=== PATIENT | female | born 1965 | race Caucasian/White ===

== ENCOUNTER 2019-01-03 00:52 | Inpatient (IN) | payer MEDICAID ==
[~2019-01-03] VITALS: Ht 162.6 cm; Wt 68.0 kg
[~2019-01-03 00:52] MED LIST: BACO TOP; CLINDAMYCIN300 M1 PO; HIBICLENS118 ML TOP; LAC PO; LEVAQUIN500 MG PO
--- NOTE | 2019-01-03 00:58 | NUR ---
RECEIVED A 53 Y/O F FOR DOG BITE INFECTION TO THE LEG. PER PATIENT. SHE SUSTAINED THE DOG BITE 2 WEEKS AGO. PT WENT TO [facility] AND WAS GIVEN AMOXICILLIN ANTIBIOTICS. PT CALLED BECAUSE SHE WAS FEELING DIZZY AND NOTICED PUS COMING OUT OF HER WOUND. MD AT THE BEDSIDE. PT WANTS THE MD TO "SQUEEZE BLOOD OUT AND SLICE IT OPEN". THERE ARE 2 NOTED WOUNDS ON THE LEFT LEG MEASURING 1X1 CM AND 1 X 2 CM. 5 NOTED WOUNDS ON THE RIGHT LEG. THE BIGGEST WOUND MEASURES 3X5X1 CM. THE OTHER WOUNDS ARE 3X 1.2 CM AND ANOTHER ONE IS 3X2X1/2 CM. PT DENIES ANY PAIN AT THIS MOMENT AND REPORTS NUMBNESS ON THE WOUND. PT AAOX4. RESP EVEN AND UNLABORED. PT PLACED ON BP CUFF, PULSE OX. NO DISTRESS. WILL CONTINUE TO MONITOR FOR SAFETY
[2019-01-03 02:08] LABS: BASOPHIL % 0.4 % (0-2); PLATELET COUNT 280 x10^3mcL (130-400); RED CELL DISTRIBUTION WIDTH 13.8 % (11.5-14.5)
[2019-01-03 02:14] LABS: CALCIUM 8.2 mg/dL (8.5-10.1); CARBON DIOXIDE 29.8 mmol/L (21-32); CHLORIDE SERUM 103 mmol/L (98-107); CREATININE SERUM 0.8 mg/dL (0.6-1.0); GFR1 > 60 mL/min; GLUCOSE SERUM 94 mg/dL (74-106); POTASSIUM SERUM 3.5 mmol/L (3.5-5.1); SODIUM SERUM 139 mmol/L (136-145)
[2019-01-03 02:19] LABS: ALBUMIN 3.4 g/dL (3.4-5.0); ALKALINE PHOSPHATASE 78 U/L (46-116); ALT/SGPT 49 U/L (14-59); AST/SGOT 37 U/L (15-37); BILIRUBIN TOTAL 0.2 mg/dL (0.20-1.00); TOTAL PROTEIN, SERUM 7.2 g/dL (6.4-8.2)
--- NOTE | 2019-01-03 03:48 | NUR ---
PATIENT WAS SEEN BY . HAD LAB DRAWN.PATIENT WAS LOCK IN THE BATHROOM FOR A LONG TIME. HAD XRAY, HAD LAND , HAD EKG.
[2019-01-03 04:57] LABS: MAGNESIUM 2.3 mg/dL (1.8-2.4); PHOSPHOROUS 3.5 mg/dL (2.5-4.9)
[2019-01-03 05:01] LABS: CHOLESTEROL/HDL RATIO 4.5
[2019-01-03 05:07] LABS: T3 TOTAL 1.12 ng/mL
--- NOTE | 2019-01-03 05:08 | NUR ---
PATIENT WAS AWAKEN FOR TRANSFER TO [facility]. SHE AMBULATED TO THE BATHROOM, URINE SENT TO THE LAB FOR UA , CULTURE AND TOX SCREEN
[2019-01-03 05:14] LABS: FREE T4 1.2 ng/dL (0.76-1.46); FREE THYROXINE INDEX 3.5 ug/dL (1.4-4.5); T4(THYROXINE) 10.9 ug/dL (4.7-13.3)
[2019-01-03 06:18] VITALS: BP 116/64
[2019-01-03 06:18] LABS: microscopic required? NO
--- NOTE | 2019-01-03 06:46 | NUR ---
RECEIVED PT FROM ED VIA BED ACCOMPANIED BY NURSE. PT AAOX4 ABLE TO MAKE NEEDS KNOWN. ON TELE# [address] SR. DENIES CP/PRESSURE AT THIS TIME. PALPABLE PULSES TO BLE. EDEMA TO RLE NOTED. LUNG SOUNDS CTA ON RA. BREATHING EVEN AND UNLABORED. NO ACUTE DISTRESS NOTED. ABD SOFT AND NONDISTENDED. ACTIVE BOWEL SOUNDS X4 QUAD. DENIES N/V/D. VOIDS FREELY BRP. WEAKNESS TO RLE. IV TO RH RUNNING NS AT 100ML/HR. SITE FREE FROM REDNESS AND SWELLING. BED AT LOWEST SETTING. SIDE RAILS X2 UP. CALL LIGHT WITHING REACH. WILL ENDORSE CARE TO AM NURSE.
--- NOTE | 2019-01-03 07:20 | NUR ---
RECEIVED PT FROM BRANCH LIBRARY CLERK RN. Chaka/RADHA. TELE#7. DENIES CHEST PAIN/PRESSURE. RESPIRATIONS EQUAL AND UNLABORED ON RA. DENIES SOB. WOUNDS TO BLE BIOMETRICS INSTRUCTOR, ERYTHEMA NOTED TO WOUND BED. DRAINING YELLOW DISCHARGE. PT C/O PAIN TO BLE THROBBING 11/12. RELAXATION ENCOURAGED. PT STATES SHE FEELS TIRED. WILL CONTINUE TO MONITOR. CALL LIGHT IN REACH. BED IN LOWEST POSITION.
[2019-01-03 07:36] LABS: UA SPECIFIC GRAVITY <=1.005 (1.005-1.035); urine erythrocyte NEGATIVE (NEGATIVE)
--- NOTE | 2019-01-03 07:42 | NUR ---
CALLED PHARMACY REGARDING VANCOMYCIN. PER PHARMACIST WILL LOOK INTO CHANGING TIME.
[2019-01-03 07:59] LABS: AMPHETAMINE QUAL UR POSITIVE (See below)
[2019-01-03 09:07] VITALS: BP 106/67
--- NOTE | 2019-01-03 11:26 | NUR ---
PT SITTING UP IN BED. NO ACUTE RESP DISTRESS NOTED ON RA. PT ASKING TO EAT. CALLED [facility] PHONE PER DR. PEREZ WILL HAVE TAKING CARE OF PT CALL BACK. ENCOURAGED PT TO WAIT DUE TO NO DIET ORDER YET. IV ANTIBIOTICS INFUSING ORDERED. WILL CONTINUE TO MONITOR. CALL LIGHT IN REACH. BED IN LOWEST POSITION.
--- NOTE | 2019-01-03 11:44 | NUR ---
PT SITTING UP AT BEDSIDE. PT GETTING DRESSED TO GO HOME. PT STATES " I DONT HAVE A RIDE FOR LATER. MY RIDE IS HERE NOW. I WANT TO LEAVE. I CAN TAKE CARE OF MY WOUND AT HOME." DR. GUZMAN AT BEDSIDE. DR. GUZMAN AND DR. CORNELIUS SPEAKING TO PT ENCOURAGING PT TO STAY. PT STILL WISHING TO LEAVE. PT STATES "THAT FINE I WILL JUST SIGN MYSELF OUT AGAINST MEDICAL ADVICE" PT ALLOWED DR. GUZMAN TO CHANGE DRESSING. DR. CORNELIUS WILL GIVE PT PRESCRIPTION TO TAKE HOME.
--- NOTE | 2019-01-03 12:00 | NUR ---
PT SIGNED AMA FORM. IV TO RH REMOVED CATHETER INTACT. NO REDNESS OR SWELLING NOTED. DR. CORNELIUS GAVE PT PRESCRIPTION FROM [facility]. [facility] PT OFF FLOOR.
[2019-01-08 08:32] VITALS: Ht 162.6 cm; Wt 68.0 kg
== END 2019-01-03 12:00 | disposition left against medical advice (07) | DRG 383 ==
LOC: ED 00:52 → DU 04:03
PROVIDERS: Emergency Medicine; ADMIT Internal Medicine
DX: L03.115 Cellulitis of right lower limb (principal); D64.9 Anemia, unspecified; S81.851S Open bite, right lower leg, sequela; F17.210 Nicotine dependence, cigarettes, uncomplicated; Z68.25 Body mass index [BMI] 25.0-25.9, adult; L03.116 Cellulitis of left lower limb; Z85.828 Personal history of other malignant neoplasm of skin; Z86.73 Personal history of transient ischemic attack (TIA), and cerebral infarction without residual deficits
CPT/HCPCS: 84439; G0378; J2543; J3370; J7030; Q0092

== ENCOUNTER 2019-01-08 13:50 | Inpatient (IN) | payer MEDICAID ==
[~2019-01-08] VITALS: Ht 170.2 cm; Wt 72.6 kg
[2019-01-08 13:54] VITALS: Ht 170.2 cm; Wt 72.6 kg
--- NOTE | 2019-01-08 17:06 | NUR ---
PT BIB FAMILY C/C NEEDS MED REFILL FOR PO ATB S/P RT LEG DOG BITE PT STS WAS DISCHARGE FROM HERE X 6 DAYS AGO AWAITING FOR DR KEM DOAN
--- NOTE | 2019-01-08 18:47 | NUR ---
DR HSIEH AT [facility] TO FRANKI
--- NOTE | 2019-01-08 19:05 | NUR ---
INFRASTRUCTURE PROJECT MANAGER AT BEDSIDE FOR BLOOD DRAW
--- NOTE | 2019-01-08 19:10 | NUR ---
RECEIVED REPORT FROM MIR AND ASSUMED CARE OF PATIENT. PT. LAYING ON GURNEY IN POSITON OF COMFORT. BREATHING E/U. NOT IN ANY APPARENT DISTRESS AT THIS TIME. CALL LIGHT IN REACH. FAMILY AT BEDSIDE. WILL CONTINUE TO MONITOR
[2019-01-08 19:27] LABS: BASOPHIL % 0.3 % (0-2)
[2019-01-08 19:28] LABS: PLATELET COUNT 432 x10^3mcL (130-400)
[2019-01-08 19:39] LABS: CALCIUM 8.8 mg/dL (8.5-10.1); CHLORIDE SERUM 103 mmol/L (98-107); CREATININE SERUM 0.8 mg/dL (0.6-1.0); GFR1 > 60 mL/min; GLUCOSE SERUM 94 mg/dL (74-106); POTASSIUM SERUM 3.5 mmol/L (3.5-5.1); SODIUM SERUM 142 mmol/L (136-145)
--- NOTE | 2019-01-08 19:41 | NUR ---
PT. MEDICATED WITH UNASYN IV. NO ADVERSE REACTION NOTED. PER ISI CAMPBELL FOR PT. TO EAR. FAMILY AT BEDSIDE BROUGHT PT. FOOD. CALL LIGHT IN REACH. WILL CONTINUE TO MONITOR
[2019-01-08 19:43] LABS: ALKALINE PHOSPHATASE 85 U/L (46-116); ALT/SGPT 43 U/L (14-59); AST/SGOT 27 U/L (15-37); BILIRUBIN TOTAL 0.1 mg/dL (0.20-1.00); TOTAL PROTEIN, SERUM 7.4 g/dL (6.4-8.2)
[2019-01-08 19:45] LABS: ALBUMIN 3.3 g/dL (3.4-5.0)
--- NOTE | 2019-01-08 19:47 | NUR ---
PT. REPORTS SHE DOES NOT TAKE ANY MEDS AT HOME
--- NOTE | 2019-01-08 20:00 | NUR ---
PICTURES OF WOUNDS ON LOWER LEGS TAKEN AND PLACED IN CHART.
--- NOTE | 2019-01-08 20:24 | NUR ---
PT. AND ARGUING AND YELLING AT EACHOTHER. INFORMED THAT IF HE CONTINUES TO YELL HE WILL HAVE TO LEAVE DEPARTMENT. COOPERATIVE WITH STAFF AND STATES HE WILL LOWER HIS VOICE.
--- NOTE | 2019-01-08 20:43 | NUR ---
REPORT GIVEN TO KUN FRIAS IN [facility] FOR FURTHER CARE OF PATIENT. ALL QUESTION AND CONCERNS ADDRESSED.
--- NOTE | 2019-01-08 21:07 | NUR ---
PT. TRANSPORTED TO [facility] VIA WHEELCHAIR BY [facility] COMBS. STABLE AT TIME OF TRANSFER.
[2019-01-08 21:43] VITALS: BP 146/74
--- NOTE | 2019-01-08 21:46 | NUR ---
RECEIVED PT FROM ED VIA [facility]. ORIENTED PT TO ROOM AND SURROUNDINGS. IV NOTED TO RH PATENT AND INTACT. INSTRUCTED PT ON THE USE OF CALL LIGHT FOR ASSISTANCE. ENDORSED PT TO PRIMARY NURSE PEG
--- NOTE | 2019-01-08 22:00 | NUR ---
PT RECEIVED A/O X4, ABLE TO MAKE NEEDS KNOWN. MED-SURG, DENIES CP/PRESSURE. PULSES PALPABLE, LLE EDEMA PRESENT. BREATHING IS EVEN AND UNLABORED ON RA, NO RESP DISTRESS NOTED. ABD SOFT AND NONDISTENDED, DENIES N/V. VOIDS FREELY, BRP. MILD GENERALIZED WEAKNESS. PT ADMITTED FOR INFECTED DOG BITES TO BLE. MULTIPLE OPEN WOUNDS NOTED TO BLE, JAMISON. PT DENIES HAVING ANY PAIN AT THIS TIME. IV TO RH, PATENT AND INTACT, SITE WNL. NO ACUTE DISTRESS NOTED. SPOUSE AT BEDSIDE. ORIENTED PT TO ROOM AND CALL LIGHT. BED IN LOWEST SETTING, SIDE RAILS UP X2, CALL LIGHT WITHIN REACH. WILL CONT TO MONITOR.
--- NOTE | 2019-01-09 02:08 | NUR ---
PT RESTING IN BED WITH EYES CLOSED, BUT IS EASILY AROUSABLE. BREATHING IS EVEN AND UNLABORED, NO RESP DISTRESS NOTED. PT DENIES HAVING ANY PAIN AT THIS TIME. IV ABX INFUSING WELL, SITE WNL. NO ACUTE DISTRESS NOTED. CALL LIGHT WITHIN REACH. WILL CONT TO MONITOR.
[2019-01-09 06:03] VITALS: BP 120/69
[2019-01-09 06:48] LABS: microscopic required? NO
[2019-01-09 07:14] LABS: urine erythrocyte NEGATIVE (NEGATIVE)
--- NOTE | 2019-01-09 07:16 | NUR ---
RECEIVED REPORT FROM PEG FRIAS. PATIENT RESTING COMFORTABLY IN BED. IV TO RT HAND IS PATENT AND INFUSING NS @ 100. NO REDNESS OR PAIN. PT ON ROOM AIR. NO C/O SOB AND NO DISTRESS NOTED. ALL QUESTIONS AND CONCERNS ADDRESSED.
--- NOTE | 2019-01-09 07:32 | NUR ---
PT SLEPT WELL THROUGHOUT THE EVENING. BREATHING IS EVEN AND UNLABORED, NO RESP DISTRESS NOTED. PT DENIES HAVING ANY PAIN AT THIS TIME. ATTEMPTED TO APPLY DRESSINGS TO PT'S BLE WOUNDS, PT REFUSED, PT STATES, "NO, PLEASE JUST LEAVE THEM OPEN TO AIR. IT HURT WHEN THERE WAS A DRESSING ON IT, AND I DON'T WANT IT TO HURT, PLEASE." PT EDUCATED ON IMPORTANCE OF WOUND DRSG, PT VERBALIZES UNDERSTANDING, BUT CONT TO REFUSED. PT'S WOUNDS LEFT JAMISON. IVF INFUSING WELL, SITE WNL. NO ACUTE CHANGES ENCOUNTERED DURING SHIFT. ALL NEEDS MET AND ANTICIPATED. CALL LIGHT WITHIN REACH. CONTINUITY OF CARE ENDORSED TO FRANK FRIAS. ALL QUESTIONS AND CONCERNS ADDRESSED.
[2019-01-09 07:35] LABS: AMPHETAMINE QUAL UR POSITIVE (See below)
[2019-01-09 09:22] VITALS: BP 121/61
--- NOTE | 2019-01-09 13:44 | NUR ---
PATIENT SEEN AMBULATING IN THE [facility].
[2019-01-09 17:37] VITALS: BP 142/76
--- NOTE | 2019-01-09 17:59 | NUR ---
DR SINGH IN TO SEE PATIENT TO CLEAN AND DRESS WOUNDS.
--- NOTE | 2019-01-09 19:20 | NUR ---
RECIEVED PT RESTING IN BED WITH NO ACUTE DISTRESS NOTED AT THIS TIME, ASSESSMENT PERFORMED, NO SOB OR PAIN AT THIS TIME, DRESSINGS HAVE SMALL AMOUNT OF SEROUS DRAINAGE CIRCLED, IV TO RIGHT HAND, CLEAN DRY AND INTACT, SAFETY PRECAUTIONS IN PLACE, WILL CONTINUE TO MONITOR
--- NOTE | 2019-01-09 19:35 | NUR ---
REPORT GIVEN TO ALAN FRIAS. PATIENT RESTING COMFORTABLY IN BED. ALL NEEDS MET. ALL QUESTIONS AND CONCERNS ADDRESSED. ALL CARES ENDORSED.
[2019-01-09 21:35] VITALS: BP 134/70
--- NOTE | 2019-01-09 23:20 | NUR ---
DR CASIANO BY TO SEE PATIENTEXAMINED PICTURES OF WOUNDS AND CHANGED ABX ORDERS
--- NOTE | 2019-01-10 01:15 | NUR ---
REMOVED BANDAGES TO BLE, CLEANSED WOUNDS WITH NS, PATTED DRY AND REPLACED WITH DRY DRESSING
--- NOTE | 2019-01-10 05:09 | NUR ---
PT RESTED COMFORTABLY THROUGH THE NIGHT WITH NO ACUTE PAIN OR SOB, PT DRESSING WAS CHANGED AND HAD MONIMAL AMOUNT OF SEROUS DRAINAGE, PT AMBULATED X1 TO THE BATHROOM DURING SHIFT, ALL NEEDS ATTENDED TO WILL CONTINUE TO MONITOR AND ENDORSE CARE
[2019-01-10 05:38] VITALS: BP 117/64
[2019-01-10 06:38] LABS: BASOPHIL % 0.5 % (0-2); PLATELET COUNT 353 x10^3mcL (130-400)
[2019-01-10 06:49] LABS: CALCIUM 8.2 mg/dL (8.5-10.1); CARBON DIOXIDE 26.4 mmol/L (21-32); CHLORIDE SERUM 109 mmol/L (98-107); CREATININE SERUM 0.8 mg/dL (0.6-1.0); GFR1 > 60 mL/min; GLUCOSE SERUM 76 mg/dL (74-106); POTASSIUM SERUM 4.3 mmol/L (3.5-5.1); SODIUM SERUM 142 mmol/L (136-145)
--- NOTE | 2019-01-10 07:20 | NUR ---
RECEIVED REPORT FROM ALAN FRIAS. PATIENT CURRENTLY AMBULATING BACK TO HER ROOM. IV TO RT HAND IS PATENT AND INFUSING NS @ 70 ML/HR. NO REDNESS OR PAIN. PT ON ROOM AIR. NO C/O SOB AND NO DISTRESS NOTED. ALL QUESTIONS AND CONCERNS ADDRESSED.
[2019-01-10 07:32] LABS: RED CELL DISTRIBUTION WIDTH 15.7 % (11.5-14.5)
[2019-01-10 09:53] VITALS: BP 133/67
--- NOTE | 2019-01-10 10:45 | NUR ---
DR SINGH IN TO SEE PATIENT FOR DRESSING CHANGE.
--- NOTE | 2019-01-10 13:06 | NUR ---
IN TO ADMINISTER TETANUS SHOT (SEE eMAR). PATIENT RESTING COMFORTABLY IN BED WITH ALL NEEDS MET.
--- NOTE | 2019-01-10 16:11 | NUR ---
DR MEHTA IN TO SEE AND ASSESS PATIENT.
[2019-01-10 17:33] VITALS: BP 126/63
--- NOTE | 2019-01-10 19:49 | NUR ---
REPORT GIVEN TO SKINNY FRIAS. PATIENT RESTING COMFORTABLY IN BED WITH ALL NEEDS MET. ALL QUESTIONS AND CONCERNS ADDRESSED. ALL CARES ENDORSED.
--- NOTE | 2019-01-10 19:50 | NUR ---
RECEIVED REPORT FROM DAY SHIFT RN. PT RESTING IN BED. AA&O X4. NO SOB ON ROOM AIR. NO C/O PAIN. NO DISTRESS NOTED. DRESSING TO BLE, C/D/I. IV TO RIGHT HAND, NS INFUSING. SAFETY MEASURES IN PLACE. BED IN LOWEST POSITION. SIDE RAILS UP X2. INSTRUCTED PT TO USE THE CALL LIGHT FOR ASSISTANCE. CALL LIGHT WITHIN REACH.
[2019-01-10 20:37] VITALS: BP 144/78
--- NOTE | 2019-01-11 02:10 | NUR ---
PT RESTING WITH EYES CLOSED. NO SOB ON ROOM AIR. NO FACIAL GRIMACING. NO DISTRESS NOTED. CALL LIGHT WITHIN REACH. WILL CONTINUE TO MONITOR.
[2019-01-11 05:12] VITALS: BP 119/59
[2019-01-11 06:21] LABS: BASOPHIL % 0.1 % (0-2); PLATELET COUNT 321 x10^3mcL (130-400)
--- NOTE | 2019-01-11 06:37 | NUR ---
PT RESTED AT LONG INTERVALS THROUGHOUT SHIFT. NO SOB ON ROOM AIR. NO C/O PAIN. NO ACUTE DISTRESS NOTED. BEDSIDE COMMODE PROVIDED. PER PT, SHE DOESN'T MAKE IT TO THE BATHROOM FAST ENOUGH AND SOMETIMES WETS HERSELF. SAFETY MEASURES MAINTAINED. ALL NEEDS ATTENDED TO. DRESSINGS TO BLE, INTACT. CALL LIGHT WITHIN REACH. WILL ENDORSE CONTINUITY OF CARE TO DAY SHIFT RN.
[2019-01-11 06:43] LABS: RED CELL DISTRIBUTION WIDTH 15.3 % (11.5-14.5)
[2019-01-11 07:12] LABS: CALCIUM 8.3 mg/dL (8.5-10.1); CARBON DIOXIDE 26.4 mmol/L (21-32); CHLORIDE SERUM 106 mmol/L (98-107); CREATININE SERUM 0.7 mg/dL (0.6-1.0); GFR1 > 60 mL/min; GLUCOSE SERUM 96 mg/dL (74-106); MAGNESIUM 1.8 mg/dL (1.8-2.4); PHOSPHOROUS 2.6 mg/dL (2.5-4.9); POTASSIUM SERUM 4.4 mmol/L (3.5-5.1); SODIUM SERUM 140 mmol/L (136-145)
--- NOTE | 2019-01-11 08:00 | NUR ---
ALERT AND ORIENTED. BREATHING FREELY ON RA. DENIES PAIN OR NEED FOR PAIN MED AT THIS TIME. NS INFUSING 70 CC HOUR. DRESSINGS TO LEFT AND RIGHT CALVES INTACT. LEFT DRESSING W SM AMT YELLOW DRAINAGE. INDEPENDENT W ADL'S. CONTACT ISOLATION FOR PREVIOUS (+) CULTURES TO LEG WOUNDS. CALL LIGHT WITHIN REACH.
[2019-01-11 08:49] VITALS: BP 107/68
--- NOTE | 2019-01-11 11:01 | NUR ---
DR. CLAIRE FISHING ROD ASSEMBLER ON TO CK ON LEG WOUNDS AND PERFOM DRESING CHANGES.
--- NOTE | 2019-01-11 17:33 | NUR ---
RECEIVED T.C. FROM PINKY IN PHARMACY. PT IS STAPH (+) IN WOUNDS. VANCO SENSITIVE. PINKY WANTS TO BE SURE DR. MEHTA WILL BE MADE AWARE.
[2019-01-11 17:41] VITALS: BP 116/59
--- NOTE | 2019-01-11 18:20 | NUR ---
RESTING COMFORTABLY. LOWER LEGS ELEVATED ON PILLOW. DRESSING CDI. VSS, AFEBRILE. NS INFUSING 70 CC HOUR. ON MERRPENEM AND COLISTINE IV ABX. CONTACT ISOLATION FOR STAPH TO LEG WOUNDS. NO PROBLEMS COMMUNICATING. SHAMPOO CAP TODAY. PT TRYING TO GET AJ OF HER FATHER WHO LIVES IN [place] TO SEE IF HE WILL CALL HER STORAGE PLACE AND PAY FOR HER UNIT UNTIL SHE GETS OUT OF HOSPITAL.
[2019-01-11 19:45] VITALS: BP 118/79
--- NOTE | 2019-01-11 19:45 | NUR ---
RECEIVED PT AWAKE ALERT AND VERBALLY RESPONSIVE.DENIES ANY PAIN AT THIS TIME.BP 118/79 MMHG,HR 72.DRESSING TO BLE NOTED WRAPPED WITH KERLIX.SOME SWELLING NOTED AND ENCOURAGED TO ELEVATE ON A PILLOW.ON CONTACT ISOLATION FOR STAPH INFECTION.WILL OBSERVE GOODHANDWASHING TECHNIQUE.WILL CONTINUE TO MONITOR.
--- NOTE | 2019-01-12 04:38 | NUR ---
PT SLEPT WELL.DENIES ANY PAIN OR DISCOMFORT.NO ASE NOTED FROM MERREM AND COLISTIN IV ATB.DRESSING TO BLE INTACT.REMAINS ON CONTACT ISOALTION FOR STAPH INFECTION.MDRO WOUND.GOODHANDWASHING TECHNIQUE OBSERVED.ALL NEEDS MET.WILL CONTINUE TO MONITOR.
[2019-01-12 05:02] VITALS: BP 123/69
[2019-01-12 06:43] LABS: BASOPHIL % 0.2 % (0-2); PLATELET COUNT 299 x10^3mcL (130-400)
[2019-01-12 06:57] LABS: RED CELL DISTRIBUTION WIDTH 16.2 % (11.5-14.5)
[2019-01-12 07:07] LABS: CALCIUM 8.6 mg/dL (8.5-10.1); CARBON DIOXIDE 23.2 mmol/L (21-32); CREATININE SERUM 1.1 mg/dL (0.6-1.0); POTASSIUM SERUM 3.9 mmol/L (3.5-5.1)
--- NOTE | 2019-01-12 08:00 | NUR ---
ALERT AND ORIENTED. DENIES ANY PAIN. CONTACT ISOLATION FOR STAPH TO LEG WOUNDS. DRESSINGS CDI. MED SURG PT. NS INFUSING 70 CC HOUR RT HAND. INDEPENDENT W ADL'S. CALL LIGHT WITHIN REACH.
[2019-01-12 09:28] VITALS: BP 140/84
--- NOTE | 2019-01-12 14:21 | NUR ---
PT LEFT AMA. SAID SHE HAD TO GO PAY HER STORAGE FEE. RESIDENT ENCOURAGED HER TO STAY SHE NEEDS WOUND CARE AND IV ABX. PT AGREED TO GO BACK TO ER WHEN SHE HAD FINISHED HER BUSINESS. CHANGED DRESSINGS. ALL FIVE WOUNDS TO LEFT AND RIGHT CALVES HAD YELLOWISH DRAINAGE ON EXSISTING DRESSINGS. PT SIGNED AMA FORM. IV DC'D.
== END 2019-01-12 12:19 | disposition left against medical advice (07) | DRG 383 ==
LOC: ED 13:50 → MU 20:02 → ED 20:02 → MU 21:09
PROVIDERS: Internal Medicine; Student in an Organized Health Care Education/Training Program; ADMIT Internal Medicine
DX: L03.116 Cellulitis of left lower limb (principal); E44.0 Moderate protein-calorie malnutrition; B87.1 Wound myiasis; D47.3 Essential (hemorrhagic) thrombocythemia; B96.4 Proteus (mirabilis) (morganii) as the cause of diseases classified elsewhere; D64.9 Anemia, unspecified; B95.62 Methicillin resistant Staphylococcus aureus infection as the cause of diseases classified elsewhere; L03.115 Cellulitis of right lower limb; S81.851S Open bite, right lower leg, sequela; S81.852S Open bite, left lower leg, sequela; L60.3 Nail dystrophy; G40.909 Epilepsy, unspecified, not intractable, without status epilepticus; E86.0 Dehydration; F15.10 Other stimulant abuse, uncomplicated; Z68.20 Body mass index [BMI] 20.0-20.9, adult; Z86.73 Personal history of transient ischemic attack (TIA), and cerebral infarction without residual deficits; W54.0XXS Bitten by dog, sequela
CPT/HCPCS: 90714; G0378; J0295; J0770; J2185; J3370; J7030; J7050

== ENCOUNTER 2020-02-17 21:39 | Emergency (ER) | payer MEDICAID ==
[~2020-02-17] VITALS: Ht 170.2 cm; Wt 63.5 kg
[2020-02-17 21:48] VITALS: Ht 170.2 cm; Wt 63.5 kg
[2020-02-17 23:40] VITALS: BP 130/70
== END 2020-02-17 23:40 | disposition home or self-care (01) ==
LOC: ED 21:39
DX: S06.0X0A Concussion without loss of consciousness, initial encounter (principal); T67.5XXA Heat exhaustion, unspecified, initial encounter; Z86.73 Personal history of transient ischemic attack (TIA), and cerebral infarction without residual deficits; X58.XXXA Exposure to other specified factors, initial encounter; Y93.89 Activity, other specified; Y92.89 Other specified places as the place of occurrence of the external cause; Y99.8 Other external cause status